=== PATIENT | female | born 1950 | race Caucasian/White ===

== ENCOUNTER 2017-09-07 11:09 | Outpatient (CLI) | payer MEDICARE, MEDICAID ==
--- NOTE | 2017-09-07 16:03 | XRAY Report ---
TWO VIEW CHEST: 09/07/2017 CLINICAL INDICATION: COPD. COMPARISON: 02/13/2013. FINDINGS: Frontal and lateral views of the chest demonstrate a normal cardiac silhouette. The lungs are hyperinflated, compatible with COPD. No focal consolidation, effusion , or pneumothorax is evident. IMPRESSION: HYPERINFLATION, BUT NO EVIDENCE OF ACUTE CARDIOPULMONARY DISEASE. TD: 09/07/2017 16:02 MTDD
== END 2017-09-07 11:10 | disposition home or self-care (01) ==
LOC: DI.S 11:09
PROVIDERS: ATTEND Nurse Practitioner Family
DX: J44.9 Chronic obstructive pulmonary disease, unspecified (principal)
CPT/HCPCS: 71046

== ENCOUNTER 2017-10-06 14:00 | Outpatient (CLI) | payer MEDICARE, MEDICAID | END 2017-10-06 14:01 | disposition home or self-care (01) | LOC: LAB.R 14:00 | PROVIDERS: ATTEND Nurse Practitioner Family | DX: Z79.891 Long term (current) use of opiate analgesic (principal) | CPT/HCPCS: 80307; 81599; G0480; 80354; 80361; 80362; 80365 ==

== ENCOUNTER 2018-04-22 14:14 | Outpatient (CLI) | payer MEDICARE, MEDICAID ==
[2018-04-22 17:39] LABS: BASOPHILS # (AUTO) 0.1 10^3/uL (0.0-0.1); BASOPHILS % (AUTO) 0.5 %; EOSINOPHILS # (AUTO) 0.3 10^3/uL (0.0-0.7); EOSINOPHILS % (AUTO) 3.1 %; HGB - HEMOGLOBIN 14.9 g/dL (12.0-16.0); LYMPHOCYTES # (AUTO) 2.5 10^3/uL (1.5-3.5); LYMPHOCYTES % (AUTO) 27.2 %; MEAN CORPUSCULAR HEMOGLOBIN 29.4 pg (27.0-31.0); MEAN CORPUSCULAR HGB CONC 33.3 g/dL (32.0-36.0); MEAN CORPUSCULAR VOLUME 88.3 fL (81.0-99.0); MONOCYTES # (AUTO) 0.4 10^3/uL (0.0-1.0); MONOCYTES % (AUTO) 4.4 %; NEUTROPHILS # (AUTO) 6.1 10^3/uL (1.5-6.6); NEUTROPHILS % (AUTO) 64.8 %; PLT - PLATELET COUNT 188 10^3/uL (130-450); RED BLOOD COUNT 5.08 10^6/uL (4.20-5.40); RED CELL DISTRIBUTION WIDTH 13.7 % (12.0-15.0); WHITE BLOOD COUNT 9.4 x10^3/uL (4.8-10.8)
[2018-04-22 18:06] LABS: ALBUMIN 3.8 g/dL (3.2-5.5); ALBUMIN/GLOBULIN RATIO 1.4 (1.0-2.2); ALKALINE PHOSPHATASE 76 IU/L (42-121); ALT ALANINE AMINOTRANSFERASE 33 IU/L (10-60); AST ASPARTATE AMINOTRANSFERASE 26 IU/L (10-42); BILIRUBIN,TOTAL 0.7 mg/dL (0.2-1.0); BUN - BLOOD UREA NITROGEN 18 mg/dL (6-20); CALCIUM 9.2 mg/dL (8.5-10.3); CARBON DIOXIDE - CO2 31 mmol/L (21-32); CHLORIDE 99 mmol/L (101-111); CHOL/HDL RATIO 2.8 (<4.4); CHOLESTEROL 138 mg/dL; CREATININE 0.8 mg/dL (0.4-1.0); GFR - MDRD 72 (>89); GLUCOSE 204 mg/dL (70-100); HDL CHOLESTEROL 49 mg/dL; LDL CHOLESTEROL,CALCULATED 68 mg/dL; LDL/HDL RATIO 1.4 (<4.4); SODIUM 137 mmol/L (135-145); TOTAL PROTEIN 6.6 g/dL (6.7-8.2); VLDL CHOLESTEROL 21 mg/dL
[2018-04-22 18:21] LABS: HB2 TOTAL 15.9 g/dL; HEMOGLOBIN A1C 1.2 g/dL; HEMOGLOBIN A1C % 9.1 % (4.6-6.2)
== END 2018-04-22 14:15 | disposition home or self-care (01) ==
LOC: LAB.F 14:14
PROVIDERS: ATTEND Nurse Practitioner Family
DX: I10 Essential (primary) hypertension (principal); E11.9 Type 2 diabetes mellitus without complications; E78.5 Hyperlipidemia, unspecified
CPT/HCPCS: 36415; 80053; 80061; 82043; 83036; 83721; 84443; 85025

== ENCOUNTER 2018-08-23 08:00 | Outpatient (CLI) | payer MEDICARE, MEDICAID ==
[2018-08-23 18:14] LABS: ALBUMIN 3.7 g/dL (3.2-5.5); ALBUMIN/GLOBULIN RATIO 1.2 (1.0-2.2); BILIRUBIN,TOTAL 0.5 mg/dL (0.2-1.0); CALCIUM 8.8 mg/dL (8.5-10.3); CREATININE 0.6 mg/dL (0.4-1.0); TOTAL PROTEIN 6.7 g/dL (6.7-8.2)
[2018-08-23 19:36] LABS: HB2 TOTAL 17.2 g/dL; HEMOGLOBIN A1C 1.33 g/dL; HEMOGLOBIN A1C % 9.2 % (4.6-6.2)
== END 2018-08-23 23:59 | disposition home or self-care (01) ==
LOC: LAB.F 08:00
PROVIDERS: ATTEND Nurse Practitioner Family
DX: E11.9 Type 2 diabetes mellitus without complications (principal)
CPT/HCPCS: 36415; 80053; 82043; 83036

== ENCOUNTER 2018-09-08 08:34 | Outpatient (CLI) | payer MEDICARE, MEDICAID | END 2018-09-08 23:59 | disposition home or self-care (01) | LOC: LAB.R 08:34 | PROVIDERS: ATTEND Nurse Practitioner Family | DX: Z12.11 Encounter for screening for malignant neoplasm of colon (principal) | CPT/HCPCS: 82270; 82274 ==

== ENCOUNTER 2018-09-20 08:00 | Outpatient (CLI) | payer MEDICARE, MEDICAID ==
[2018-09-20 12:24] LABS: BILIRUBIN,URINE NEGATIVE (NEGATIVE); GLUCOSE, URINE (UA) 250 mg/dL (NEGATIVE); KETONES,URINE (UA) TRACE mg/dL (NEGATIVE); LEUKOCYTE ESTERASE, URINE NEGATIVE (NEGATIVE); NITRITE,URINE NEGATIVE (NEGATIVE); OCCULT BLOOD,URINE NEGATIVE (NEGATIVE); PROTEIN,URINE TRACE mg/dL (NEGATIVE); UROBILINOGEN,URINE 0.2 (NORMAL) E.U./dL (NORMAL)
[2018-09-20 12:34] LABS: BACTERIA,URINE None Seen /HPF (None Seen); CLARITY,URINE CLEAR (CLEAR); RBC,URINE None Seen /HPF (0-5); SQUAMOUS EPITHELIAL CELL,UR RARE Squamous (<= Few)
== END 2018-09-20 23:59 | disposition home or self-care (01) ==
LOC: LAB.R 08:00
PROVIDERS: ATTEND Nurse Practitioner Family
DX: R34 Anuria and oliguria (principal); Z79.891 Long term (current) use of opiate analgesic
CPT/HCPCS: 81001; 87086

== ENCOUNTER 2018-11-01 14:21 | Emergency (ER) | payer MEDICARE, MEDICAID ==
[2018-11-01] MEDS ORDERED: IPRATROPIUM/ALBUTEROL 3 ML NEB INH STA (14:37)
--- NOTE | 2018-11-01 14:43 | ED Physician Documentation ---
PD HPI DYSPNEA - Stated complaint Stated Complaint: SOA/CHEST TIGHTNESS - Chief complaint Chief Complaint: Resp - History obtained from History obtained from: Patient - History of Present Illness Timing - onset: Other (67-year-old woman with history of COPD presents with 4 days of cough productive of colored sputum and increased shortness of breath, sometimes with exertion, sometimes at rest. She has had several days worth of constant tightness around the upper abdomen with it and some pedal edema as well. She denies fevers.) Review of Systems Ten Systems: 10 systems reviewed and negative Constitutional: denies: Fever, Chills Throat: denies: Dental pain / toothache, Sore throat Cardiac: reports: Chest pain / pressure, Pedal edema. denies: Palpitations, Calf pain Respiratory: reports: Dyspnea, Cough, Wheezing PD PAST MEDICAL HISTORY - Past Medical History Cardiovascular: None Respiratory: COPD, Shortness of breath Endocrine/Autoimmune: Type 2 diabetes GI: Chronic constipation, Pancreatitis Psych: Depression, Anxiety - Past Surgical History Past Surgical History: Yes /SURGICAL AIDE: Hysterectomy Cardiovascular: Vascular surgery - Present Medications Home Medications: Ambulatory Orders Medication Instructions Recorded Confirmed Albuterol [Proventil Hfa] 1 puffs INH Q4-6H 02/13/13 02/13/13 Aspirin [Aspir 81] 81 mg PO 02/13/13 02/13/13 Hydrocodone/Ibuprofen [Vicoprofen 200 mg PO 02/13/13 02/13/13 200-7.5 mg Tab] Insulin Glargine,Hum.rec.anlog 100 unit SQ 02/13/13 02/13/13 [Lantus] Insulin Lispro [Humalog] 100 unit SQ 02/13/13 02/13/13 Losartan/Hydrochlorothiazide 1 each PO DAILY 02/13/13 02/13/13 [Hyzaar 100-25 Tablet] Montelukast Sodium [Singulair] 10 mg PO HS 02/13/13 02/13/13 Simvastatin [Zocor] 40 mg PO DAILY 02/13/13 02/13/13 Doxycycline Hyclate 100 mg PO BID #14 capsule 11/01/18 Furosemide [Lasix] 20 mg PO DAILY #3 tablet 11/01/18 Ipratropium/Albuterol [Duoneb] 3 ml INH Q6H PRN #1 b 11/01/18 Losartan/Hydrochlorothiazide 1 each PO DAILY #30 tablet 11/01/18 [Losartan-Hctz 100-12.5 mg Tab] Potassium Chloride 10 meq PO DAILY #3 tablet.er 11/01/18 predniSONE [Deltasone] 20 mg PO [id number] #[id number] tab 11/01/18 - Allergies Allergies/Adverse Reactions: Allergies Allergy/AdvReac Type Severity Reaction Status Date / Time lisinopril Allergy Severe Edema Verified 02/13/13 08:52 - Social History Does the pt smoke?: No Smoking Status: Former smoker Does the pt drink ETOH?: No PD ED PE NORMAL - Vitals Vital signs reviewed: Yes - General General: Alert and oriented X 3, No acute distress - HEENT HEENT: PERRL, EOMI - Neck Neck: Supple, no meningeal sign, No bony TTP - Cardiac Cardiac: RRR, No murmur - Respiratory Respiratory: Other (Slightly labored breathing but speaking in full sentences, tight and wheezy throughout.) - Abdomen Abdomen: Soft, Non tender - Back Back: No CVA TTP, No spinal TTP - Derm Derm: Normal color, Warm and dry - Extremities Extremities: Other (2+ bilateral pitting pedal edema, no calf tenderness. Chr onic venous stasis changes.) - Neuro Neuro: Alert and oriented X 3, Normal speech Results - Vitals Vitals: Vital Signs - 24 hr 11/01/18 11/01/18 11/01/18 14:30 14:48 15:00 Temperature 35.8 C L Heart Rate 81 82 Respiratory 22 22 14 Rate Blood Pressure 161/79 H O2 Saturation 98 Oxygen O2 Source Room air - EKG (time done) 1428 Rate: Rate (enter#) (86) Rhythm: NSR [place]: Normal Intervals: Normal MI, LBBB Computer interpretation: Agree with computer - Labs Labs: Laboratory Tests 11/01/18 11/01/18 11/01/18 14:44 14:44 14:44 WBC 8.1 RBC 4.92 Hgb 14.0 Hct 42.9 MCV 87.2 MCH 28.5 MCHC 32.6 RDW 13.6 Plt Count 203 MPV 7.1 L Neut # (Auto) 5.0 Lymph # (Auto) 2.3 Hind[place] # (Auto) 0.5 Eos # (Auto) 0.3 Baso # (Auto) 0.0 Absolute Nucleated RBC 0.01 Nucleated RBC % 0.1 D-Dimer Sodium 139 Potassium 4.2 Chloride 100 L Carbon Dioxide 29 Anion Gap 10.0 BUN 20 Creatinine 0.6 Estimated GFR (MDRD) 100 Glucose 188 H Calcium 9.1 Total Bilirubin 0.7 AST 39 ALT 43 Alkaline Phosphatase 64 Troponin I < 0.04 Total Protein 6.6 L Albumin 3.5 Globulin 3.1 Albumin/Globulin Ratio 1.1 Lipase 20 L 11/01/18 14:44 WBC RBC Hgb Hct MCV MCH MCHC RDW Plt Count MPV Neut # (Auto) Lymph # (Auto) [place] # (Auto) Eos # (Auto) Baso # (Auto) Absolute Nucleated RBC Nucleated RBC % D-Dimer 327.3 H Sodium Potassium Chloride Carbon Dioxide Anion Gap BUN Creatinine Estimated GFR (MDRD) Glucose Calcium Total Bilirubin AST ALT Alkaline Phosphatase Troponin I Total Protein Albumin Globulin Albumin/Globulin Ratio Lipase - Rads (name of study) 2v chest Radiology: EMP read contemporaneously (mild chf) PD MEDICAL DECISION MAKING - ED course ED course: 67-year-old woman with dyspnea that sounds like a COPD exacerbation more than anything else. Note that her d-dimer flags as high but most authorities would consider this value (<500) to be negative. Chest x-ray shows mild CHF. On further history, her physician changed her from losartan/hydrochlorothiazide to metoprolol about a month ago. This may have been suppressing mild chronic CHF and the patient wants to switch back. It is also reasonable to switch away from the beta-ct given the wheezing. She is in no extremis here and understands she needs to follow-up with her physician for further evaluation and treatment and possibly an echocardiogram. Departure - Departure Disposition: 01 Home, Self Care Clinical Impression: Moderate COPD (chronic obstructive pulmonary disease) Congestive heart failure Qualifiers: Heart failure type: unspecified Heart failure chronicity: acute Qualified Code(s): I50.9 - Heart failure, unspecified Condition: Good Record reviewed to determine appropriate education?: Yes Instructions: COPD Dc, Heart Failure Dc Prescriptions: Doxycycline Hyclate 100 mg PO BID #14 capsule Furosemide [Lasix] 20 mg PO DAILY #3 tablet Ipratropium/Albuterol [Duoneb] 3 ml INH Q6H PRN #1 b PRN Reason: Wheezing Losartan/Hydrochlorothiazide [Losartan-Hctz 100-12.5 mg Tab] 1 each PO DAILY #30 tablet Potassium Chloride 10 meq PO DAILY #3 tablet.er predniSONE [Deltasone] 20 mg PO [id number] #21 tab Comments: As discussed your work-up today demonstrates that your shortness of breath is likely a little bit of a combination of COPD exacerbation as well as mild congestive heart failure, Perhaps from recently stopping losartan/hydrochlorothiazide. The diuretics will help and you need to take the potassium supplement while you are on diuretics. Follow-up with your doctor in 2 days for recheck. Return if worse.
[2018-11-01 14:51] LABS: BASOPHILS % (AUTO) 0.6 %; EOSINOPHILS # (AUTO) 0.3 10^3/uL (0.0-0.7); EOSINOPHILS % (AUTO) 3.3 %; LYMPHOCYTES # (AUTO) 2.3 10^3/uL (1.5-3.5); LYMPHOCYTES % (AUTO) 28.9 %; MEAN CORPUSCULAR HEMOGLOBIN 28.5 pg (27.0-31.0); MEAN CORPUSCULAR HGB CONC 32.6 g/dL (32.0-36.0); MEAN CORPUSCULAR VOLUME 87.2 fL (81.0-99.0); MEAN PLATELET VOLUME 7.1 fL (7.9-10.8); MONOCYTES # (AUTO) 0.5 10^3/uL (0.0-1.0); MONOCYTES % (AUTO) 5.6 %; NEUTROPHILS % (AUTO) 61.6 %; PLT - PLATELET COUNT 203 10^3/uL (130-450); RED BLOOD COUNT 4.92 10^6/uL (4.20-5.40); RED CELL DISTRIBUTION WIDTH 13.6 % (12.0-15.0); WHITE BLOOD COUNT 8.1 x10^3/uL (4.8-10.8)
[2018-11-01 15:02] LABS: ALBUMIN 3.5 g/dL (3.2-5.5); ALBUMIN/GLOBULIN RATIO 1.1 (1.0-2.2); BILIRUBIN,TOTAL 0.7 mg/dL (0.2-1.0); CALCIUM 9.1 mg/dL (8.5-10.3); CREATININE 0.6 mg/dL (0.4-1.0); TOTAL PROTEIN 6.6 g/dL (6.7-8.2)
--- NOTE | 2018-11-01 15:56 | XRAY Report ---
Reason: dyspnea Procedure Date: 11/01/2018 Accession Number: [id number] / [id number] Procedure: XR - Chest 2 View X-Ray CPT Code: 95841 FULL RESULT: EXAM: CHEST RADIOGRAPHY EXAM DATE: 11/01/2018 03:40 PM. CLINICAL HISTORY: Dyspnea. COMPARISON: CHEST 2 VIEW 09/07/2017 11:24 AM. TECHNIQUE: 2 views. FINDINGS: Lungs/Pleura: Small right and trace left pleural effusions. Mild interstitial prominence. No consolidation or pneumothorax. Mediastinum: Mild cardiomegaly, increased since previous study, with diffuse vascular fullness. Other: Degenerative changes. IMPRESSION: Mild congestive failure. RADIA
[2018-11-01] MEDS ORDERED: FUROSEMIDE 20 MG TABLET PO STA (16:02)
[2018-11-01] MEDS ORDERED: ISOSORBIDE MONONITRATE ER 30 MG TABLET PO STA (16:02)
[2018-11-01] MEDS ORDERED: DOXYCYCLINE 100 MG TABLET PO STA (16:03)
[2018-11-01] MEDS ORDERED: predniSONE 20 MG TABLET PO STA (16:03)
[2018-11-01 16:20] VITALS: BP 155/75
== END 2018-11-01 16:32 | disposition home or self-care (01) ==
LOC: ED 14:21
DX: J44.9 Chronic obstructive pulmonary disease, unspecified (principal); I50.9 Heart failure, unspecified; I44.7 Left bundle-branch block, unspecified; E11.9 Type 2 diabetes mellitus without complications; Z79.4 Long term (current) use of insulin; Z79.82 Long term (current) use of aspirin; Z87.891 Personal history of nicotine dependence
CPT/HCPCS: 36415; 71046; 80053; 83690; 84484; 85025; 85379; 93005; 94640; 99283; 99284; A9270; J7512

== ENCOUNTER 2018-11-10 13:41 | Outpatient (CLI) | payer MEDICARE, MEDICAID | END 2018-11-10 13:42 | disposition home or self-care (01) | LOC: DI 13:41 | PROVIDERS: ATTEND Nurse Practitioner Family | DX: R07.89 Other chest pain (principal); I51.7 Cardiomegaly; R00.0 Tachycardia, unspecified | CPT/HCPCS: 93306 ==

== ENCOUNTER 2018-11-21 08:00 | Outpatient (CLI) | payer MEDICARE, MEDICAID ==
[2018-11-21 17:09] LABS: MUDS CUTOFF CONCENTRATIONS CUTOFF CONC BELOW:
[2018-11-21 17:33] LABS: COCAINE SCREEN URINE NEGATIVE (NEGATIVE); METHAMPHETAMINES SCREEN, URINE NEGATIVE (NEGATIVE)
[2018-11-21 17:34] LABS: AMPHETAMINE SCREEN,URINE NEGATIVE (NEGATIVE); BENZODIAZEPINES SCREEN, URINE NEGATIVE (NEGATIVE); METHADONE SCREEN, URINE NEGATIVE (NEGATIVE); OPIATE SCREEN, URINE POSITIVE (NEGATIVE); OXYCODONE SCREEN, URINE NEGATIVE (NEGATIVE); PROPOXYPHENE SCREEN, URINE NEGATIVE (NEGATIVE); TRICYCLIC ANTIDEPRESSANT,URINE NEGATIVE (NEGATIVE)
== END 2018-11-21 23:59 | disposition home or self-care (01) ==
LOC: LAB.R 08:00
PROVIDERS: ATTEND Nurse Practitioner Family
DX: G89.4 Chronic pain syndrome (principal)
CPT/HCPCS: 80306

== ENCOUNTER 2018-12-23 09:07 | Outpatient (CLI) | payer MEDICARE, MEDICAID ==
[2018-12-23 17:36] LABS: CHOL/HDL RATIO 2.7 (<4.4); CHOLESTEROL 135 mg/dL; HDL CHOLESTEROL 50 mg/dL; LDL CHOLESTEROL,CALCULATED 74 mg/dL; LDL/HDL RATIO 1.5 (<4.4); VLDL CHOLESTEROL 11 mg/dL
[2018-12-23 18:18] LABS: HB2 TOTAL 14.5 g/dL; HEMOGLOBIN A1C 1.08 g/dL
== END 2018-12-23 09:08 | disposition home or self-care (01) ==
LOC: LAB.F 09:07
PROVIDERS: ATTEND Physician Assistant Medical
DX: E11.9 Type 2 diabetes mellitus without complications (principal); E78.5 Hyperlipidemia, unspecified; M54.2 Cervicalgia; G89.29 Other chronic pain
CPT/HCPCS: 36415; 80061; 83036; 83721

== ENCOUNTER 2019-01-02 13:17 | Outpatient (CLI) | payer MEDICARE, MEDICAID ==
--- NOTE | 2019-01-04 10:20 | XRAY Report ---
Reason: NECK PAIN Procedure Date: 01/02/2019 Accession Number: [id number] / [id number] Procedure: XRS - Cervical Spine Complete CPT Code: FULL RESULT: EXAM: CERVICAL SPINE RADIOGRAPHY EXAM DATE: 01/02/2019 01:56 PM. CLINICAL HISTORY: Neck pain. COMPARISONS: None. TECHNIQUE: 6 views. FINDINGS: Alignment: Slight levoscoliosis of lower cervical spine. No spondylolisthesis. Straightening of the normal cervical lordosis. Bones: No acute fracture or bony lesion. Odontoid is intact. Mild degenerative spurring. Disks: Mild to moderate multilevel disk space narrowing throughout the cervical spine greatest at C4-C5, C5-C6, C6-C7 and C7-T1. Facets: Mild to moderate cervical facet arthropathy. Neural Foramina: Right: Moderate neural foraminal narrowing on the right at C3-C4, mild narrowing at C4-C5, C5-C6, C6-C7 and C7-T1. Left: Mild to moderate neural foraminal narrowing at C3-C4, mild narrowing at C5-C6 and C7-T1. Soft tissues: No prevertebral soft tissue swelling. The visualized lung apices are clear. IMPRESSION: 1. Mild to moderate intervertebral disk degenerative changes of the cervical spine. 2. Cervical facet arthropathy. 3. Bilateral neural foraminal narrowing, as described. RADIA
== END 2019-01-02 13:18 | disposition home or self-care (01) ==
LOC: DI.S 13:17
PROVIDERS: ATTEND Physician Assistant Medical
DX: M50.321 Other cervical disc degeneration at C4-C5 level (principal); M48.02 Spinal stenosis, cervical region; M47.812 Spondylosis without myelopathy or radiculopathy, cervical region
CPT/HCPCS: 72050

== ENCOUNTER 2019-05-08 12:01 | Outpatient (CLI) | payer MEDICARE, MEDICAID ==
[2019-05-08 18:08] LABS: BASOPHILS % (AUTO) 0.4 %; EOSINOPHILS # (AUTO) 0.4 10^3/uL (0.0-0.7); EOSINOPHILS % (AUTO) 4.2 %; HGB - HEMOGLOBIN 15.2 g/dL (12.0-16.0); LYMPHOCYTES # (AUTO) 2.3 10^3/uL (1.5-3.5); LYMPHOCYTES % (AUTO) 23.2 %; MEAN CORPUSCULAR HGB CONC 31.3 g/dL (32.0-36.0); MEAN CORPUSCULAR VOLUME 89.3 fL (81.0-99.0); MEAN PLATELET VOLUME 10.6 fL (7.9-10.8); MONOCYTES # (AUTO) 0.6 10^3/uL (0.0-1.0); MONOCYTES % (AUTO) 6.1 %; NEUTROPHILS # (AUTO) 6.6 10^3/uL (1.5-6.6); NEUTROPHILS % (AUTO) 65.7 %; PLT - PLATELET COUNT 205 10^3/uL (130-450); RED BLOOD COUNT 5.43 10^6/uL (4.20-5.40); RED CELL DISTRIBUTION WIDTH 12.5 % (12.0-15.0); WHITE BLOOD COUNT 10.1 x10^3/uL (4.8-10.8)
[2019-05-08 18:27] LABS: HB2 TOTAL 15.8 g/dL; HEMOGLOBIN A1C 0.96 g/dL; HEMOGLOBIN A1C % 7.7 % (4.6-6.2)
[2019-05-08 18:34] LABS: ALBUMIN/GLOBULIN RATIO 1.2 (1.0-2.2); ALKALINE PHOSPHATASE 56 IU/L (42-121); ALT ALANINE AMINOTRANSFERASE 29 IU/L (10-60); AST ASPARTATE AMINOTRANSFERASE 23 IU/L (10-42); BILIRUBIN,TOTAL 0.6 mg/dL (0.2-1.0); BUN - BLOOD UREA NITROGEN 20 mg/dL (6-20); CALCIUM 9.6 mg/dL (8.5-10.3); CARBON DIOXIDE - CO2 29 mmol/L (21-32); CHLORIDE 103 mmol/L (101-111); CHOL/HDL RATIO 2.7 (<4.4); CHOLESTEROL 129 mg/dL; CREATININE 0.7 mg/dL (0.4-1.0); CREATININE,URINE 140.9 mg/dL; GFR - MDRD 84 (>89); GLUCOSE 124 mg/dL (70-100); HDL CHOLESTEROL 47 mg/dL; LDL CHOLESTEROL,CALCULATED 55 mg/dL; LDL/HDL RATIO 1.2 (<4.4); MICROALBUM/CREATININE RATIO,UR 70.3 ug/mg (<30.0); MICROALBUMIN,URINE 9.9 mg/dL (0-300.0); SODIUM 139 mmol/L (135-145); TOTAL PROTEIN 7.3 g/dL (6.7-8.2); VLDL CHOLESTEROL 27 mg/dL
== END 2019-05-08 12:02 | disposition home or self-care (01) ==
LOC: LAB.S 12:01
PROVIDERS: ATTEND Physician Assistant Medical
DX: I10 Essential (primary) hypertension (principal); E78.5 Hyperlipidemia, unspecified; E11.9 Type 2 diabetes mellitus without complications
CPT/HCPCS: 36415; 80053; 80061; 82043; 82570; 83036; 83721; 85025

== ENCOUNTER 2019-09-13 11:46 | Outpatient (CLI) | payer MEDICARE, MEDICAID ==
[2019-09-13 17:33] LABS: ALBUMIN 3.9 g/dL (3.2-5.5); ALBUMIN/GLOBULIN RATIO 1.3 (1.0-2.2); BILIRUBIN,TOTAL 0.6 mg/dL (0.2-1.0); CREATININE 0.6 mg/dL (0.4-1.0)
[2019-09-13 17:38] LABS: BASOPHILS # (AUTO) 0.1 10^3/uL (0.0-0.1); BASOPHILS % (AUTO) 0.5 %; EOSINOPHILS # (AUTO) 0.4 10^3/uL (0.0-0.7); EOSINOPHILS % (AUTO) 4.5 %; HGB - HEMOGLOBIN 14.5 g/dL (12.0-16.0); LYMPHOCYTES # (AUTO) 2.3 10^3/uL (1.5-3.5); LYMPHOCYTES % (AUTO) 24.6 %; MEAN CORPUSCULAR HEMOGLOBIN 29.2 pg (27.0-31.0); MEAN CORPUSCULAR HGB CONC 31.8 g/dL (32.0-36.0); MEAN CORPUSCULAR VOLUME 91.9 fL (81.0-99.0); MEAN PLATELET VOLUME 10.2 fL (7.9-10.8); MONOCYTES # (AUTO) 0.6 10^3/uL (0.0-1.0); MONOCYTES % (AUTO) 5.8 %; NEUTROPHILS # (AUTO) 6.1 10^3/uL (1.5-6.6); PLT - PLATELET COUNT 216 10^3/uL (130-450); RED BLOOD COUNT 4.96 10^6/uL (4.20-5.40); RED CELL DISTRIBUTION WIDTH 12.6 % (12.0-15.0); WHITE BLOOD COUNT 9.5 x10^3/uL (4.8-10.8)
== END 2019-09-13 11:47 | disposition home or self-care (01) ==
LOC: LAB.S 11:46
PROVIDERS: ATTEND Internal Medicine Cardiovascular Disease
DX: R94.39 Abnormal result of other cardiovascular function study (principal)
CPT/HCPCS: 36415; 80053; 85025

== ENCOUNTER 2020-02-12 08:00 | Outpatient (CLI) | payer MEDICARE, MEDICAID ==
--- NOTE | 2020-02-12 20:00 | XRAY Report ---
PROCEDURE: Chest 2 View X-Ray INDICATIONS: SHORTNESS OF BREATH TECHNIQUE: 2 view(s) of the chest. COMPARISON: None. FINDINGS: Surgical changes and devices: None. Lungs and pleura: No pleural effusions or pneumothorax. Lungs are clear. Mediastinum: Mediastinal contours are normal. Heart size is normal. Bones and chest wall: No suspicious bony abnormalities. Soft tissues appear unremarkable. IMPRESSION: No acute disease. Reviewed by: Tanner Latham MD on 02/12/2020 7:59 PM PDT Approved by: Tanner Latham MD on 02/12/2020 7:59 PM PDT Station ID: [id number]
--- NOTE | 2020-02-13 10:07 | XRAY Report ---
PROCEDURE: Wrist 4 View RT INDICATIONS: PAIN IN RIGHT WRIST TECHNIQUE: 4 views of the wrist were acquired. COMPARISON: None. FINDINGS: Bones: No acute fractures or dislocations. There are degenerative changes of the distal radial carpa l joint. Degenerative changes involving the distal ulna near the distal radial ulnar joint. Mild dege nerative changes of the first carpometacarpal joint. No suspicious bony lesions. Scaphoid view: Scapholunate interval is maintained. No scaphoid fracture visualized. Soft tissues: No suspicious soft tissue calcifications. IMPRESSION: Degenerative changes of the right wrist. No acute fracture or dislocation. Reviewed by: Reno Slater MD on 02/13/2020 10:06 AM PDT Approved by: Reno Slater MD on 02/13/2020 10:06 AM PDT Station ID: [id number]
== END 2020-02-12 23:59 | disposition home or self-care (01) ==
LOC: DI.S 08:00
PROVIDERS: ATTEND Physician Assistant Medical
DX: R06.02 Shortness of breath (principal); M19.031 Primary osteoarthritis, right wrist; I50.1 Left ventricular failure, unspecified; I25.10 Atherosclerotic heart disease of native coronary artery without angina pectoris; J44.9 Chronic obstructive pulmonary disease, unspecified; E11.9 Type 2 diabetes mellitus without complications; E78.5 Hyperlipidemia, unspecified; Z79.899 Other long term (current) drug therapy
CPT/HCPCS: 36415; 71046; 80053; 80061; 82043; 82570; 83036; 83721; 83880; 84443; 85025

== ENCOUNTER 2020-02-22 13:26 | Outpatient (CLI) | payer MEDICARE, MEDICAID | END 2020-02-22 13:27 | disposition home or self-care (01) | LOC: DI 13:26 | PROVIDERS: ATTEND Internal Medicine Cardiovascular Disease | DX: I51.7 Cardiomegaly (principal) | CPT/HCPCS: 93306 ==

== ENCOUNTER 2020-05-06 16:29 | Outpatient (CLI) | payer MEDICARE, MEDICAID | END 2020-05-06 16:30 | disposition home or self-care (01) | LOC: COV 16:29 | PROVIDERS: ATTEND Family Medicine | DX: Z20.828 Contact with and (suspected) exposure to other viral communicable diseases (principal); M79.641 Pain in right hand ==

== ENCOUNTER 2020-06-07 07:00 | Outpatient (CLI) | payer MEDICARE, MEDICAID | END 2020-06-07 23:59 | disposition home or self-care (01) | LOC: COV 07:00 | PROVIDERS: ATTEND Surgery | DX: Z01.812 Encounter for preprocedural laboratory examination (principal); Z80.0 Family history of malignant neoplasm of digestive organs; R11.0 Nausea; E11.9 Type 2 diabetes mellitus without complications; Z20.828 Contact with and (suspected) exposure to other viral communicable diseases ==

== ENCOUNTER 2020-06-13 06:19 | Day surgery (SDC) | payer MEDICARE, MEDICAID ==
[2020-06-13] MEDS ORDERED: LACTATED RINGERS 1,000 ML IV ONE ×2 (07:23→09:54)
--- NOTE | 2020-06-13 07:32 | ANESTHESIA ---
Pre-Anesthesia VS, & Labs - Diagnosis chronic nausea, family history of colon cancer - Procedure EGD and colonoscopy Vital Signs: Temp Pulse Resp BP Pulse Ox 36. C L 81 18 96/64 98 06/13/20 06:53 06/13/20 06:53 06/13/20 06:53 06/13/20 06:53 06/13/20 06:53 Height: 5 ft 5 in Weight (kg): 99.7 kg Body Mass Index: 36.6 BMI Classification: Obese - NPO >8 hours - Is Patient ?: No - Lab Results Current Lab Results: Laboratory Tests 06/13/20 07:19: POC Whole Bld Glucose 181 H Home Medications and Allergies Home Medications: Ambulatory Orders Carvedilol [Coreg] 1 BID 06/13/20 Gabapentin [Neurontin] 1 QID 06/13/20 Losartan [Cozaar] 0.5 DAILY 06/13/20 Prasugrel HCl 1 DAILY 06/13/20 Spironolactone [Aldactone] 1 DAILY 06/13/20 Albuterol [Proventil Hfa] 1 puffs INH Q4-6H 02/13/13 Aspirin [Aspir 81] 81 mg PO 02/13/13 Insulin Glargine,Hum.rec.anlog [Lantus] 100 unit SQ 02/13/13 Montelukast Sodium [Singulair] 10 mg PO HS 02/13/13 Simvastatin [Zocor] 40 mg PO DAILY 02/13/13 Carvedilol [Coreg] 1 BID 06/13/20 Gabapentin [Neurontin] 1 QID 06/13/20 Losartan [Cozaar] 0.5 DAILY 06/13/20 Prasugrel HCl 1 DAILY 06/13/20 Spironolactone [Aldactone] 1 DAILY 06/13/20 Allergies/Adverse Reactions: Allergies Allergy/AdvReac Type Severity Reaction Status Date / Time lisinopril Allergy Severe Edema Verified 02/13/13 08:52 Anes History & Medical History - Anesthetic History Anesthesia Complications: reports: No previous complications - Medical History Cardiovascular: reports: Hypertension, Coronary artery disease (Stents placed 09/2019) Pulmonary: reports: COPD, Shortness of breath, Sleep apnea (snores) Gastrointestinal: reports: Chronic constipation, Pancreatitis Urinary: reports: Incontinence Neuro: reports: Peripheral neuropathy (all extremeties) Musculoskeletal: reports: Osteoarthritis, Fibromyalgia, Chronic back pain Endocrine/Autoimmune: reports: Type 2 diabetes Blood Disorders: reports: None Skin: reports: Eczema, Other Smoking Status: Former smoker (quit 2.5 years ago) Psychosocial: reports: Depression, Anxiety, Cannabis (edible at night) History of Cancer?: No - Surgical History General: Colonoscopy, EGD Eyes Ears Nose Throat (EENT): Cataracts, Tonsil/Adenoidectomy Cardiothoracic: Angioplasty Gynecologic: Dilation and currettage, Hysterectomy Orthopedic: Other Exam General: Alert, Oriented x3, Cooperative, No acute distress Dental: Poor dentition Mouth Openin Fingerbreadth Neck Mobility: Normal Mallampati classification: III Thyromental Distance: 4-6 cm Mental/Cognitive Status: Alert/Oriented X3, Normal for patient Plan Anesthesia Type: MAC Consent for Procedure(s) Verified and Reviewed: Yes Code Status: Attempt Resuscitation ASA classification: 3-Severe systemic disease Is this case an emergency?: No
[2020-06-13] MEDS ORDERED: MIDAZOLAM 2 MG/2 ML VIAL IVP ONE (08:35)
[2020-06-13] MEDS ORDERED: PROPOFOL 200 MG/20 ML VIAL IVP ONE (08:35)
[2020-06-13] MEDS ORDERED: fentaNYL 100 MCG/2 ML VIAL IVP ONE (08:35)
[2020-06-13 10:26] VITALS: BP 131/54
--- NOTE | 2020-06-13 12:31 | ANESTHESIA POST OP EVALUATION ---
Anesthesia Post Eval - Post Anesthesia Eval Vitals: Last Vital Signs Temp 36.0 C L 06/13/20 10:20 Pulse 71 06/13/20 10:20 Resp 14 06/13/20 10:20 BP 131/54 H 06/13/20 10:20 Pulse Ox 98 06/13/20 10:20 CV Function Including HR & BP: positive: Stable Pain Control: positive: Satisfactory Nausea & Vomiting: positive: Negative Mental Status: positive: Baseline Respiratory Status: Airway Patent Hydration Status: Satisfactory Anesthesia Complications: positive: None
== END 2020-06-13 06:20 | disposition home or self-care (01) ==
LOC: SDS 06:19
PROVIDERS: ATTEND Surgery
PROC: 0DBL8ZZ Excision of Transverse Colon, Via Natural or Artificial Opening Endoscopic (ICD-10-PCS; principal; 2020-06-13 07:30)
PROC: 0DB68ZX Excision of Stomach, Via Natural or Artificial Opening Endoscopic, Diagnostic (ICD-10-PCS; 2020-06-13 07:30)
DX: Z12.11 Encounter for screening for malignant neoplasm of colon (principal); K29.50 Unspecified chronic gastritis without bleeding; K44.9 Diaphragmatic hernia without obstruction or gangrene; K29.80 Duodenitis without bleeding; K22.2 Esophageal obstruction; D12.0 Benign neoplasm of cecum; D12.3 Benign neoplasm of transverse colon; D12.5 Benign neoplasm of sigmoid colon; K57.30 Diverticulosis of large intestine without perforation or abscess without bleeding; Z80.0 Family history of malignant neoplasm of digestive organs; E66.01 Morbid (severe) obesity due to excess calories; Z68.35 Body mass index [BMI] 35.0-35.9, adult; I11.0 Hypertensive heart disease with heart failure; I50.9 Heart failure, unspecified; I25.10 Atherosclerotic heart disease of native coronary artery without angina pectoris; J44.9 Chronic obstructive pulmonary disease, unspecified; G47.30 Sleep apnea, unspecified; R32 Unspecified urinary incontinence; E11.42 Type 2 diabetes mellitus with diabetic polyneuropathy; K59.09 Other constipation; M79.7 Fibromyalgia; F32.9 Major depressive disorder, single episode, unspecified; F40.240 Claustrophobia; G89.29 Other chronic pain; M54.9 Dorsalgia, unspecified; Z79.51 Long term (current) use of inhaled steroids; Z79.82 Long term (current) use of aspirin; Z79.4 Long term (current) use of insulin; Z79.899 Other long term (current) drug therapy; Z95.5 Presence of coronary angioplasty implant and graft; Z72.89 Other problems related to lifestyle; Z87.891 Personal history of nicotine dependence; E78.00 Pure hypercholesterolemia, unspecified; Z79.52 Long term (current) use of systemic steroids
CPT/HCPCS: 43239; 45384; 45385; J7120

== ENCOUNTER 2020-06-24 12:57 | Outpatient (CLI) | payer MEDICARE, MEDICAID ==
[2020-06-24 15:45] LABS: ALBUMIN 3.8 g/dL (3.2-5.5); ALBUMIN/GLOBULIN RATIO 1.2 (1.0-2.2); ALKALINE PHOSPHATASE 88 IU/L (42-121); ALT ALANINE AMINOTRANSFERASE 24 IU/L (10-60); AST ASPARTATE AMINOTRANSFERASE 17 IU/L (10-42); BILIRUBIN,TOTAL 0.4 mg/dL (0.2-1.0); BUN - BLOOD UREA NITROGEN 18 mg/dL (6-20); CALCIUM 9.3 mg/dL (8.5-10.3); CARBON DIOXIDE - CO2 30 mmol/L (21-32); CHLORIDE 103 mmol/L (101-111); CHOL/HDL RATIO 2.8 (<4.4); CHOLESTEROL 110 mg/dL; CREATININE 0.7 mg/dL (0.4-1.0); GLUCOSE 94 mg/dL (70-100); HDL CHOLESTEROL 40 mg/dL; LDL CHOLESTEROL,CALCULATED 52 mg/dL; LDL/HDL RATIO 1.3 (<4.4); SODIUM 139 mmol/L (135-145); TOTAL PROTEIN 6.9 g/dL (6.7-8.2); VLDL CHOLESTEROL 18 mg/dL
== END 2020-06-24 12:58 | disposition home or self-care (01) ==
LOC: LAB.S 12:57
PROVIDERS: ATTEND Internal Medicine Cardiovascular Disease
DX: I50.22 Chronic systolic (congestive) heart failure (principal); I25.10 Atherosclerotic heart disease of native coronary artery without angina pectoris; E78.5 Hyperlipidemia, unspecified; I42.9 Cardiomyopathy, unspecified
CPT/HCPCS: 36415; 80053; 80061; 83721; 83880

== ENCOUNTER 2021-01-16 11:19 | Outpatient (CLI) | payer MEDICARE, MEDICAID ==
[2021-01-16 11:46] LABS: BASOPHILS % (AUTO) 0.5 %; EOSINOPHILS # (AUTO) 0.3 10^3/uL (0.0-0.7); EOSINOPHILS % (AUTO) 3.8 %; HCT - HEMATOCRIT 45.1 % (37.0-47.0); HGB - HEMOGLOBIN 14.8 g/dL (12.0-16.0); LYMPHOCYTES # (AUTO) 2.1 10^3/uL (1.5-3.5); LYMPHOCYTES % (AUTO) 25.3 %; MEAN CORPUSCULAR HGB CONC 32.8 g/dL (32.0-36.0); MEAN CORPUSCULAR VOLUME 88.3 fL (81.0-99.0); MEAN PLATELET VOLUME 8.8 fL (7.9-10.8); MONOCYTES # (AUTO) 0.5 10^3/uL (0.0-1.0); MONOCYTES % (AUTO) 5.7 %; NEUTROPHILS # (AUTO) 5.2 10^3/uL (1.5-6.6); NEUTROPHILS % (AUTO) 64.2 %; PLT - PLATELET COUNT 211 10^3/uL (130-450); RED BLOOD COUNT 5.11 10^6/uL (4.20-5.40); RED CELL DISTRIBUTION WIDTH 12.9 % (12.0-15.0); WHITE BLOOD COUNT 8.1 x10^3/uL (4.8-10.8)
[2021-01-16 12:07] LABS: CREATININE,URINE 136.8 mg/dL; MICROALBUM/CREATININE RATIO,UR 30.7 ug/mg (<30.0); MICROALBUMIN,URINE 4.2 mg/dL (0-300.0)
[2021-01-16 12:10] LABS: ALBUMIN 3.9 g/dL (3.2-5.5); ALBUMIN/GLOBULIN RATIO 1.2 (1.0-2.2); ALKALINE PHOSPHATASE 79 IU/L (42-121); ALT ALANINE AMINOTRANSFERASE 26 IU/L (10-60); AST ASPARTATE AMINOTRANSFERASE 17 IU/L (10-42); BILIRUBIN,TOTAL 0.3 mg/dL (0.2-1.0); BUN - BLOOD UREA NITROGEN 15 mg/dL (6-20); CALCIUM 9.4 mg/dL (8.5-10.3); CARBON DIOXIDE - CO2 29 mmol/L (21-32); CHLORIDE 102 mmol/L (101-111); CHOL/HDL RATIO 3.8 (<4.4); CHOLESTEROL 200 mg/dL; CREATININE 0.7 mg/dL (0.4-1.0); GFR - MDRD 83 (>89); GLUCOSE 99 mg/dL (70-100); HDL CHOLESTEROL 53 mg/dL; LDL CHOLESTEROL,CALCULATED 131 mg/dL; LDL/HDL RATIO 2.5 (<4.4); POTASSIUM 4.2 mmol/L (3.5-5.0); SODIUM 141 mmol/L (135-145); TOTAL PROTEIN 7.2 g/dL (6.7-8.2); TRIGLYCERIDES 78 mg/dL; VLDL CHOLESTEROL 16 mg/dL
[2021-01-16 12:17] LABS: THYROID STIMULATING HORMONE 2.18 uIU/mL (0.34-5.60)
[2021-01-16 12:26] LABS: ESTIMATED AVERAGE GLUCOSE 203 mg/dL (70-100); HEMOGLOBIN A1c% 8.7 % (4.27-6.07)
== END 2021-01-16 11:20 | disposition home or self-care (01) ==
LOC: LAB 11:19
PROVIDERS: ATTEND Physician Assistant
DX: I11.0 Hypertensive heart disease with heart failure (principal); I50.1 Left ventricular failure, unspecified; R06.02 Shortness of breath; I25.10 Atherosclerotic heart disease of native coronary artery without angina pectoris; Z79.899 Other long term (current) drug therapy; J44.9 Chronic obstructive pulmonary disease, unspecified; E11.9 Type 2 diabetes mellitus without complications; Z79.4 Long term (current) use of insulin; E66.01 Morbid (severe) obesity due to excess calories; E78.5 Hyperlipidemia, unspecified
CPT/HCPCS: 36415; 80053; 80061; 82043; 82570; 83036; 83721; 83880; 84443; 85025

== ENCOUNTER 2021-05-09 11:11 | Outpatient (CLI) | payer MEDICARE, MEDICAID ==
--- NOTE | 2021-05-09 12:03 | XRAY Report ---
PROCEDURE: Cervical Spine 2 View INDICATIONS: CERVICALGIA TECHNIQUE: 4 view(s) of the cervical spine were acquired. COMPARISON: 01/02/2019. FINDINGS: Bones: No fractures or dislocations to the C7-T1 level. Degenerative endplate changes and bilateral facet hypertrophic changes are noted throughout cervical spine. The lateral masses of C1 appear intac t on the odontoid view. No suspicious bony lesions. Soft tissues: No prevertebral soft tissue swelling. IMPRESSION: Mild to moderate degenerative disc disease throughout cervical spine. No fracture or dis location. No prevertebral soft tissue abnormality. Reviewed by: Riaz Lara MD on 05/09/2021 12:02 PM PDT Approved by: Riaz Lara MD on 05/09/2021 12:02 PM PDT Station ID: [id number]
[2021-05-09 19:52] LABS: ESTIMATED AVERAGE GLUCOSE 189 mg/dL (70-100); HEMOGLOBIN A1c% 8.2 % (4.27-6.07)
== END 2021-05-09 11:12 | disposition home or self-care (01) ==
LOC: DI.S 11:11
PROVIDERS: ATTEND Internal Medicine
DX: M50.30 Other cervical disc degeneration, unspecified cervical region (principal); E11.9 Type 2 diabetes mellitus without complications
CPT/HCPCS: 36415; 83036

== ENCOUNTER 2021-09-05 09:55 | Outpatient (CLI) | payer MEDICARE, MEDICAID ==
[2021-09-05 10:15] LABS: BASOPHILS % (AUTO) 0.4 %; EOSINOPHILS # (AUTO) 0.3 10^3/uL (0.0-0.7); EOSINOPHILS % (AUTO) 3.4 %; HGB - HEMOGLOBIN 15.1 g/dL (12.0-16.0); LYMPHOCYTES # (AUTO) 2.4 10^3/uL (1.5-3.5); LYMPHOCYTES % (AUTO) 26.5 %; MEAN CORPUSCULAR HEMOGLOBIN 29.8 pg (27.0-31.0); MEAN CORPUSCULAR HGB CONC 32.8 g/dL (32.0-36.0); MEAN CORPUSCULAR VOLUME 90.7 fL (81.0-99.0); MEAN PLATELET VOLUME 8.8 fL (7.9-10.8); MONOCYTES # (AUTO) 0.6 10^3/uL (0.0-1.0); MONOCYTES % (AUTO) 6.8 %; NEUTROPHILS # (AUTO) 5.7 10^3/uL (1.5-6.6); NEUTROPHILS % (AUTO) 62.4 %; PLT - PLATELET COUNT 185 10^3/uL (130-450); RED BLOOD COUNT 5.07 10^6/uL (4.20-5.40); RED CELL DISTRIBUTION WIDTH 12.6 % (12.0-15.0); WHITE BLOOD COUNT 9.2 x10^3/uL (4.8-10.8)
[2021-09-05 10:27] LABS: ALBUMIN/GLOBULIN RATIO 1.3 (1.0-2.2); BILIRUBIN,TOTAL 0.7 mg/dL (0.2-1.0); CALCIUM 9.5 mg/dL (8.5-10.3); CREATININE 0.7 mg/dL (0.4-1.0); POTASSIUM 4.4 mmol/L (3.5-5.0); TOTAL PROTEIN 7.2 g/dL (6.7-8.2)
[2021-09-05 11:30] LABS: ESTIMATED AVERAGE GLUCOSE 186 mg/dL (70-100); HEMOGLOBIN A1c% 8.1 % (4.27-6.07)
== END 2021-09-05 09:56 | disposition home or self-care (01) ==
LOC: LAB 09:55
PROVIDERS: ATTEND Internal Medicine
DX: I10 Essential (primary) hypertension (principal); E11.9 Type 2 diabetes mellitus without complications
CPT/HCPCS: 36415; 80053; 83036; 85025

== ENCOUNTER 2021-11-25 14:33 | Outpatient (CLI) | payer MEDICARE, MEDICAID ==
[2021-11-25] MEDS ORDERED: ALBUTEROL 1 PUFF INH STA (17:12)
== END 2021-11-25 14:34 | disposition home or self-care (01) ==
LOC: RT 14:33
PROVIDERS: ATTEND Internal Medicine
DX: J44.9 Chronic obstructive pulmonary disease, unspecified (principal)
CPT/HCPCS: 94060; 94727; 94729

== ENCOUNTER 2022-10-15 13:18 | Emergency (ER) | payer MEDICARE, MEDICAID ==
[2022-10-15 14:00] LABS: BASOPHILS % (AUTO) 0.4 %; EOSINOPHILS # (AUTO) 0.2 10^3/uL (0.0-0.7); EOSINOPHILS % (AUTO) 2.2 %; HCT - HEMATOCRIT 48.2 % (37.0-47.0); HGB - HEMOGLOBIN 15.5 g/dL (12.0-16.0); LYMPHOCYTES # (AUTO) 2.3 10^3/uL (1.5-3.5); LYMPHOCYTES % (AUTO) 21.4 %; MEAN CORPUSCULAR HEMOGLOBIN 29.1 pg (27.0-31.0); MEAN CORPUSCULAR HGB CONC 32.2 g/dL (32.0-36.0); MEAN CORPUSCULAR VOLUME 90.4 fL (81.0-99.0); MEAN PLATELET VOLUME 9.4 fL (7.9-10.8); MONOCYTES # (AUTO) 0.5 10^3/uL (0.0-1.0); MONOCYTES % (AUTO) 4.4 %; NEUTROPHILS # (AUTO) 7.6 10^3/uL (1.5-6.6); NEUTROPHILS % (AUTO) 71.2 %; PLT - PLATELET COUNT 215 10^3/uL (130-450); RED BLOOD COUNT 5.33 10^6/uL (4.20-5.40); RED CELL DISTRIBUTION WIDTH 12.4 % (12.0-15.0); WHITE BLOOD COUNT 10.7 x10^3/uL (4.8-10.8)
[2022-10-15 14:11] LABS: ALBUMIN 3.8 g/dL (3.2-5.5); ALBUMIN/GLOBULIN RATIO 1.4 (1.0-2.2); BILIRUBIN,TOTAL 0.4 mg/dL (0.2-1.0); CALCIUM 9.4 mg/dL (8.5-10.3); CREATININE 0.7 mg/dL (0.4-1.0); POTASSIUM 4.6 mmol/L (3.5-5.0); TOTAL PROTEIN 6.6 g/dL (6.7-8.2)
[2022-10-15] MEDS ORDERED: SODIUM CHLORIDE 0.9% 1,000 ML IV STA (16:13)
[2022-10-15] MEDS ORDERED: MORPHINE 2 MG/ML CARPUJECT IVP STA (16:13)
--- NOTE | 2022-10-15 16:19 | ED Physician Documentation ---
PD HPI ABD PAIN - Stated complaint Stated Complaint: ABD PX - Chief complaint Chief Complaint: Abd Pain - History obtained from History obtained from: Patient - History of Present Illness Timing - onset: How many days ago (3-4) Timing - details: Gradual onset Pain level max: 8 Pain level now: 6 Quality: Aching, Pain Location: RUQ, RLQ, Other (R flank) Radiation: Right flank Improved by: Laying still Worsened by: Moving, Palpation Associated symptoms: Nausea, Vomiting, Constipation. No: Fever, Hematemesis, Diarrhea, Melena, Hematochezia, Dysuria, Hematuria, Chest pain, Dizzy, Near syncope / syncope, Loss of appetite, Weight loss, Vaginal bleeding Similar symptoms before: Diagnosis (gastroparesis) Review of Systems Constitutional: denies: Fever, Chills GI: denies: Hematemesis, Bloody / black stool : denies: Dysuria, Frequency, Hesitancy Skin: denies: Rash Musculoskeletal: denies: Neck pain Neurologic: denies: Headache PD PAST MEDICAL HISTORY - Past Medical History Cardiovascular: Hypertension, Coronary artery disease Respiratory: COPD, Shortness of breath, Sleep apnea Neuro: Peripheral neuropathy Endocrine/Autoimmune: Type 2 diabetes GI: Chronic constipation, Pancreatitis : Incontinence HEENT: Chronic vision loss, Other Psych: Depression, Anxiety Musculoskeletal: Osteoarthritis, Fibromyalgia, Chronic back pain Derm: Eczema, Other - Past Surgical History Past Surgical History: Yes General: Colonoscopy, EGD Ortho: Other /CASH PROCESSOR: Dilation and currettage, Hysterectomy Cardiovascular: Angioplasty HEENT: Cataracts, Tonsil/Adenoidectomy - Present Medications Home Medications: Ambulatory Orders Medication Instructions Recorded Confirmed Albuterol [Proventil Hfa] 1 puffs INH Q4-6H 02/13/13 02/13/13 Aspirin [Aspir 81] 81 mg PO 02/13/13 02/13/13 Insulin Glargine,Hum.rec.anlog 100 unit SQ 02/13/13 02/13/13 [Lantus] Montelukast Sodium [Singulair] 10 mg PO HS 02/13/13 02/13/13 Simvastatin [Zocor] 40 mg PO DAILY 02/13/13 02/13/13 Ipratropium/Albuterol [Duoneb] 3 ml INH Q6H PRN #1 b 11/01/18 Potassium Chloride 10 meq PO DAILY #3 tablet.er 11/01/18 Carvedilol [Coreg] 1 BID 06/13/20 FLUoxetine [PROzac] 1 DAILY 06/13/20 Gabapentin [Neurontin] 1 QID 06/13/20 Losartan [Cozaar] 0.5 DAILY 06/13/20 Prasugrel HCl 1 DAILY 06/13/20 Spironolactone [Aldactone] 1 DAILY 06/13/20 oxyCODONE [Roxicodone] 5 - 10 mg PO Q6H PRN #14 tablet 10/15/22 MDD 6 - Allergies Allergies/Adverse Reactions: Allergies Allergy/AdvReac Type Severity Reaction Status Date / Time lisinopril Allergy Severe Edema Verified 10/15/22 13:22 - Social History Does the pt smoke?: No Smoking Status: Never smoker Does the pt drink ETOH?: No Does the pt have substance abuse?: No - Immunizations Immunizations are current?: Yes PD ED PE NORMAL - Vitals Vital signs reviewed: Yes - General General: Alert and oriented X 3, No acute distress - HEENT HEENT: PERRL - Neck Neck: Supple, no meningeal sign - Cardiac Cardiac: RRR - Respiratory Respiratory: No respiratory distress, Clear bilaterally - Abdomen Abdomen: Soft, Non distended, Other (mild TTP RUQ, RLQ and R CVAT. o/w normal exam) - Back Back: No spinal TTP - Derm Derm: Warm and dry - Extremities Extremities: No edema, No calf tenderness / cord - Neuro Neuro: Alert and oriented X 3 - Psych Psych: Normal mood, Normal affect Results - Vitals Vitals: Vital Signs - 24 hr 10/15/22 10/15/22 10/15/22 13:22 15:48 17:09 Temperature 36.5 C Heart Rate 75 79 82 Respiratory 20 21 18 Rate Blood Pressure 121/65 136/60 H 118/62 O2 Saturation 93 100 97 10/15/22 19:10 Temperature Heart Rate 76 Respiratory 14 Rate Blood Pressure O2 Saturation 98 Oxygen O2 Source Room air - Labs Labs: Laboratory Tests 10/15/22 10/15/22 10/15/22 13:54 13:54 14:00 WBC 10.7 RBC 5.33 Hgb 15.5 Hct 48.2 H MCV 90.4 MCH 29.1 MCHC 32.2 RDW 12.4 Plt Count 215 MPV 9.4 Neut # (Auto) 7.6 H Lymph # (Auto) 2.3 Delta # (Auto) 0.5 Eos # (Auto) 0.2 Baso # (Auto) 0.0 Absolute Nucleated RBC 0.00 Nucleated RBC % 0.0 Sodium 135 Potassium 4.6 Chloride 100 L Carbon Dioxide 28 Anion Gap 7.0 BUN 16 Creatinine 0.7 Estimated GFR (MDRD) 83 L Glucose 244 H Calcium 9.4 Total Bilirubin 0.4 AST 15 ALT 23 Alkaline Phosphatase 79 Total Protein 6.6 L Albumin 3.8 Globulin 2.8 Albumin/Globulin Ratio 1.4 Lipase 32 Urine Color YELLOW Urine Clarity CLEAR Urine pH 6.5 Ur Specific [place] 1.010 Urine Protein NEGATIVE Urine Glucose (UA) 500 H Urine Ketones NEGATIVE Urine Occult Blood NEGATIVE Urine Nitrite NEGATIVE Urine Bilirubin NEGATIVE Urine Urobilinogen 0.2 (NORMAL) Ur Leukocyte Esterase NEGATIVE Ur Microscopic Review NOT INDICATED Urine Culture Comments NOT INDICATED - Rads (name of study) CT abd pel Relevant Findings:: Final report received, See rad report PD Medical Decision Making - ED course Complexity details: reviewed results, re-evaluated patient, considered differential, d/w patient, d/w family ED course: 71-year-old female with abdominal pain/right flank pain. Unclear etiology. No significant findings on CT scan, CBC, chemistry or urinalysis. Blood sugar is elevated at 244 consistent with her diabetes. Pain well controlled in the emergency department. Feels better after IV fluids as well. We will place her on pain medication for home and have her follow-up with her doctor for further care. Patient counseled regarding signs and symptoms for which I believe and urgent re-evaluation would be necessary. Patient with good understanding of and agreement to plan and is comfortable going home at this time This document was made in part using voice recognition software. While efforts are made to proofread this document, sound alike and grammatical errors may occur. Departure - Departure Disposition: 01 Home, Self Care Clinical Impression: Flank pain Abdominal pain Qualifiers: Abdominal location: unspecified location Qualified Code(s): R10.9 - Unspecified abdominal pain Condition: Good Instructions: ED Abdominal Pain Female Non-Specific Abdominal Pain Follow-Up: David Alcantar MD [Primary Care Provider] - Within 1 week Prescriptions: oxyCODONE [Roxicodone] 5 - 10 mg PO Q6H PRN #14 tablet MDD 6 PRN Reason: pain Comments: Your laboratory testing and CT scan did not show any acute abnormalities today. Please follow-up with your doctor for further care. The cause of your pain is unclear today. Your pain medication was sent to [facility] in [place]. I am prescribing a short course of narcotic pain medication for you. These are potentially dangerous and addictive medications that should be used carefully. These medications may constipate you. Take an [id number]-[id number] stool softener (docusate) twice daily with plenty of water while taking these medications. If you go 24 hours without a bowel movement, take [id number] miralax, per package instructions. Do not drink or drive while taking these medications. If you received narcotic or sedating medications while in the emergency department, do not drive for 24 hours. Store this medication in a safe, secure place and out of reach of children. It is a violation of federal law to give or sell this medication to another person or to use in a manner other than prescribed. The ED will not refill narcotic prescriptions, including prescriptions lost or stolen. To dispose of unwanted medications: 1. [facility] [address] in [place] has a medication drop box. They accept prescription medications (in pill form) Wednesday through Wednesday 9:00 a.m. to 5:00 p.m. 2. The [facility] [employer] accepts prescription medications (in pill form only) for disposal year round. Call for more information. 3. Contact the [facility] for the next [facility] sponsored prescription drug collection event. , [phone], or [phone]; Discharge Date/Time: 10/15/22 19:31
[2022-10-15] MEDS ORDERED: iohexoL-300 100 ML VIAL ONE (16:33)
[2022-10-15] MEDS ORDERED: iohexoL-300 100 ML VIAL IVP ONE (17:03)
[2022-10-15 17:11] VITALS: BP 118/62
--- NOTE | 2022-10-15 17:17 | CT Report ---
PROCEDURE: ABDOMEN/PELVIS W INDICATIONS: R sided abd pain x several days CONTRAST: 100mL Omni 300 TECHNIQUE: After the administration of intravenous contrast, 5 mm thick sections acquired from the diaphragms to the symphysis. 5 mm thick coronal and sagittal reformats were acquired. For radiation dose reducti on, the following was used: automated exposure control, adjustment of mA and/or kV according to jonnathan ent size. COMPARISON: CT abdomen/pelvis 04/07/2014 FINDINGS: Image quality: Excellent. Lung bases and heart: Unremarkable. Liver: Unremarkable. Gallbladder and biliary tree: Unremarkable. No biliary dilation. Spleen: Small hypoattenuating lesion in the posterior spleen is too small to characterize, but is lik shruthi benign. Pancreas: Unremarkable. Adrenals: Mild nodular thickening of the adrenals is presumably changed compared to the CT from 2013, and is considered benign. Kidneys and ureters: Unremarkable. Bowel and peritoneum: No bowel distension. No pathologic free fluid. Normal appendix. Lymph nodes: No central or retroperitoneal adenopathy. Vessels: Moderate aortic atherosclerotic calcifications. PELVIS Reproductive organs: Status post hysterectomy. Bladder: Unremarkable. Lymph nodes: Unremarkable. Bones: No aggressive osseous abnormality. Degenerative changes are seen in the spine. Other: Subcutaneous edema is seen at the lower abdominal wall bilaterally. IMPRESSION: 1.No acute abnormality is seen in the abdomen or pelvis. Normal appendix. 2.Nonspecific subcutaneous edema abutting the skin surface at the lower abdominal wall, possibly rela marta to medication administration versus cellulitis or other process. Recommend correlation with physi sanjay exam findings. Reviewed by: Yong Rodriguez MD on 10/15/2022 5:16 PM PDT Approved by: Yong Rodriguez MD on 10/15/2022 5:16 PM PDT Station ID: [id number]
[2022-10-15 17:19] LABS: BILIRUBIN,URINE NEGATIVE (NEGATIVE); GLUCOSE, URINE (UA) 500 mg/dL (NEGATIVE); KETONES,URINE (UA) NEGATIVE (NEGATIVE); LEUKOCYTE ESTERASE, URINE NEGATIVE (NEGATIVE); NITRITE,URINE NEGATIVE (NEGATIVE); OCCULT BLOOD,URINE NEGATIVE (NEGATIVE); PH,URINE 6.5 PH (5.0-7.5); PROTEIN,URINE NEGATIVE (NEGATIVE); UROBILINOGEN,URINE 0.2 (NORMAL) E.U./dL (NORMAL)
[2022-10-15 17:24] LABS: CLARITY,URINE CLEAR (CLEAR)
[2022-10-15] MEDS ORDERED: FAMOTIDINE 20 MG TABLET PO STA (18:17)
[2022-10-15] MEDS ORDERED: SUCRALFATE 1 GM/10 ML UDC PO STA (18:17)
[2022-10-15] MEDS ORDERED: MAG HYDROX/AL HYDROX/SIMETH 30 ML UDC PO STA (18:17)
[2022-10-15] MEDS ORDERED: oxyCODONE 5 MG TABLET PO STA (18:17)
== END 2022-10-15 19:31 | disposition home or self-care (01) ==
LOC: ED 13:18
DX: R10.9 Unspecified abdominal pain (principal); I10 Essential (primary) hypertension
CPT/HCPCS: 36415; 74177; 80053; 81003; 83690; 85025; 96374; 99284; A9270; Q9967; 81001; 87086

== ENCOUNTER 2023-09-30 18:02 | Emergency (ER) | payer MEDICARE, MEDICAID ==
--- NOTE | 2023-09-30 18:24 | ED Physician Documentation ---
PD HPI CHEST PAIN - Stated complaint Stated Complaint: CHEST PX - Chief complaint Chief Complaint: Cardiac - History obtained from History obtained from: Patient - Additional information Additional information: 72-year-old woman with history of COPD, cardiomyopathy with last EF available to me of 35% on echo about 4 years ago, coronary disease with 4 stents in her heart presents for the evaluation of chest pain. She has been having episodic brief chest pain for the last couple weeks, today developed substernal chest pain radiating to the both arms and to the right scapula starting about 10 minutes prior to arrival while shopping at the grocery store. She has chronic pedal edema not worse than normal. She is more short of breath than normal. She has a history of tobacco abuse and still smokes a couple cigarettes a week. Subsequently she tells me for the last couple of weeks she is having crescendo chest pains that are similar. This is the one that has lasted the longest so far. PD PAST MEDICAL HISTORY - Past Medical History Past Medical History: Yes Cardiovascular: Hypertension, Coronary artery disease Respiratory: COPD, Shortness of breath, Sleep apnea Neuro: Peripheral neuropathy Endocrine/Autoimmune: Type 2 diabetes GI: Chronic constipation, Pancreatitis : Incontinence HEENT: Chronic vision loss, Other Psych: Depression, Anxiety Musculoskeletal: Osteoarthritis, Fibromyalgia, Chronic back pain Derm: Eczema, Other - Past Surgical History Past Surgical History: Yes General: Colonoscopy, EGD Ortho: Other /ST[employer] TUBE: Dilation and currettage, Hysterectomy Cardiovascular: Angioplasty HEENT: Cataracts, Tonsil/Adenoidectomy - Present Medications Home Medications: Ambulatory Orders Medication Instructions Recorded Confirmed Albuterol [Proventil Hfa] 1 puffs INH Q4-6H 02/13/13 09/30/23 Aspirin [Aspir 81] 81 mg PO DAILY 02/13/13 09/30/23 Insulin Glargine,Hum.rec.anlog 100 unit SQ HS 02/13/13 09/30/23 [Lantus] Montelukast Sodium [Singulair] 10 mg PO HS 02/13/13 09/30/23 Simvastatin [Zocor] 40 mg PO DAILY 02/13/13 02/13/13 Ipratropium/Albuterol [Duoneb] 3 ml INH Q6H PRN #1 b 11/01/18 09/30/23 Potassium Chloride 10 meq PO DAILY #3 tablet.er 11/01/18 FLUoxetine [PROzac] 1 DAILY 06/13/20 Gabapentin [Neurontin] 600 mg PO QID 06/13/20 09/30/23 Losartan [Cozaar] 50 mg PO DAILY 06/13/20 09/30/23 Prasugrel HCl 10 mg PO DAILY 06/13/20 09/30/23 Spironolactone [Aldactone] 25 mg PO DAILY 06/13/20 09/30/23 carvediloL [Coreg] 12.5 mg PO BID 06/13/20 09/30/23 Albuterol Sulf [Ventolin Hfa 1 - 2 puffs INH Q4HR PRN 09/30/23 09/30/23 Inhaler] HYDROcod/ACETAM 5/325 [[place] 5/325] 1 tab PO PRN PRN 09/30/23 09/30/23 Insulin Lispro [Humalog Kwikpen 35 unit SUBQ TID 09/30/23 09/30/23 U-100] Ipratropium/Albuterol [Combivent 1 inh INH QID 09/30/23 09/30/23 Respimat] Omeprazole 20 mg PO DAILY 09/30/23 09/30/23 - Allergies Allergies/Adverse Reactions: Allergies Allergy/AdvReac Type Severity Reaction Status Date / Time lisinopril Allergy Severe Edema Verified 09/30/23 18:05 - Social History Does the pt smoke?: Yes Smoking Status: Current some day smoker Does the pt drink ETOH?: No Does the pt have substance abuse?: No - Immunizations Immunizations are current?: Yes PD ED PE NORMAL - Vitals Vital signs reviewed: Yes - General General: Alert and oriented X 3, No acute distress - HEENT HEENT: PERRL, EOMI - Neck Neck: Supple, no meningeal sign, No bony TTP - Cardiac Cardiac: Other (Tachycardic but regular with diminished heart sounds and no clear murmur.) - Respiratory Respiratory: Other (Mildly labored breathing, expiratory wheezes.) - Abdomen Abdomen: Non tender - Extremities Extremities: Other (1+ pitting pedal edema, symmetric) - Neuro Neuro: Alert and oriented X 3 Eye Opening: Spontaneous Motor: Obeys Commands Verbal: Oriented GCS Score: 15 - Psych Psych: Normal mood, Normal affect Results - Vitals Vitals: Vital Signs - 24 hr 09/30/23 09/30/23 09/30/23 18:05 18:07 19:37 Temperature 36.5 C Heart Rate 114 H 127 H 108 H Respiratory 16 19 18 Rate Blood Pressure 158/73 H 189/101 H 138/55 H O2 Saturation 96 98 98 09/30/23 09/30/23 09/30/23 20:00 21:00 22:00 Temperature Heart Rate 107 H 113 H 115 H Respiratory 18 18 19 Rate Blood Pressure 131/65 H 165/65 H 125/72 O2 Saturation 96 95 95 09/30/23 23:00 Temperature Heart Rate 98 Respiratory 19 Rate Blood Pressure O2 Saturation 95 Oxygen O2 Source Room air - EKG (time done) 1817 EKG releavant findings:: EKG personally interpreted by author of this note. Relevant findings are: Rate: Rate (enter#) (116) Rhythm: Sinus tachycardia Intervals: LBBB Ischemia: Other (DONOVAN due to strain/IVCD) Compare to prior EKG: Changed from prior EKG (Compared with November 01, 2018, the left bundle branch block is old but with increased strain morphology.) Computer interpretation: Agree with computer - Labs Labs: Laboratory Tests 09/30/23 09/30/23 09/30/23 18:30 18:30 20:19 WBC 11.2 H RBC 5.21 Hgb 15.0 Hct 47.8 H MCV 91.7 MCH 28.8 MCHC 31.4 L RDW 12.6 Plt Count 227 MPV 9.0 Neut # (Auto) 7.2 H Lymph # (Auto) 2.8 [place] # (Auto) 0.8 Eos # (Auto) 0.4 Baso # (Auto) 0.0 Absolute Nucleated RBC 0.00 Nucleated RBC % 0.0 Sodium 136 Potassium 4.3 Chloride 102 Carbon Dioxide 29 Anion Gap 5.0 L BUN 18 Creatinine 0.7 Estimated GFR (MDRD) 83 L Glucose 256 H Calcium 9.7 Magnesium 1.7 Total Bilirubin 0.4 AST 12 ALT 16 Alkaline Phosphatase 66 Troponin I High Sens 37.6 H* 243.0 H* Total Protein 6.5 Albumin 3.9 Globulin 2.6 Albumin/Globulin Ratio 1.5 - Rads (name of study) Single view chest x-ray is unremarkable Relevant Findings:: Final report received, EMP independent interpretation of test CT pulmonary angiogram without large PE. Bronchial wall thickening may indicate bronchitis. Enlarged right thyroid lobe Relevant Findings:: Final report received, EMP independent interpretation of test PD Medical Decision Making - ED course ED course: 72-year-old woman with crescendo pain that is concerning for angina. Not clearly ischemic EKG. She does have a positive troponin here but only mildly positive but it was fairly quick after the onset of symptoms. She was administered aspirin and nitroglycerin after which her pain went away. Chest x- ray was normal. She was somewhat tachycardic and having a lot of wheezing. She was administered a DuoNeb and subsequently some metoprolol as well. She is already on carvedilol. I thought the risk-benefit of adding beta-blockers was in her favor given the concern for unstable angina. She is having crescendo type symptoms and I think it is reasonable for her to be transferred for cardiology evaluation with potential for early interventional strategy. [facility] was called for potential transfer at 7:55 PM. HEART score 8 I was notified shortly thereafter the [facility] was full, we called [facility], and were told the whole [facility] system was full. Subsequently the health community engagement leader called [facility] and they may have a bed. Initial troponin 37.6. She does have a history of cardiomyopathy and COPD so it is not too surprising that she has an elevated troponin. That said a second 1 was obtained after 2 hours and had risen significantly to 243. Otherwise she was modestly hyperglycemic on CMP and her CBC had a mild nonspecific leukocytosis. At 9:20 PM she was graciously accepted to [facility] by Dr. Jason Godoy, hospitalist there who does request that we start a heparin drip. - Critical Care Time(min): 40 Time Includes: Direct patient care, Review records, Reassess patient, Document care, Coordinate care, Medical consult, Family consult for tx dec Data interpretation: Labs, Pulse ox Procedures included in critical care time: Peripheral IV Procedures excluded from critical care time: EKG Departure - Departure Disposition: 02 Transfer Acute Care Hosp Clinical Impression: Unstable angina, Abnormal imaging of thyroid Condition: Serious Forms: PCP List Discharge Date/Time: 09/30/23 23:06
[2023-09-30] MEDS ORDERED: iohexoL-300 100 ML VIAL ONE (18:26)
[2023-09-30 18:34] LABS: BASOPHILS % (AUTO) 0.4 %; EOSINOPHILS # (AUTO) 0.4 10^3/uL (0.0-0.7); EOSINOPHILS % (AUTO) 3.6 %; HCT - HEMATOCRIT 47.8 % (37.0-47.0); LYMPHOCYTES # (AUTO) 2.8 10^3/uL (1.5-3.5); LYMPHOCYTES % (AUTO) 24.6 %; MEAN CORPUSCULAR HEMOGLOBIN 28.8 pg (27.0-31.0); MEAN CORPUSCULAR HGB CONC 31.4 g/dL (32.0-36.0); MEAN CORPUSCULAR VOLUME 91.7 fL (81.0-99.0); MONOCYTES # (AUTO) 0.8 10^3/uL (0.0-1.0); MONOCYTES % (AUTO) 6.9 %; NEUTROPHILS # (AUTO) 7.2 10^3/uL (1.5-6.6); NEUTROPHILS % (AUTO) 63.7 %; PLT - PLATELET COUNT 227 10^3/uL (130-450); RED BLOOD COUNT 5.21 10^6/uL (4.20-5.40); RED CELL DISTRIBUTION WIDTH 12.6 % (12.0-15.0); WHITE BLOOD COUNT 11.2 x10^3/uL (4.8-10.8)
[2023-09-30] MEDS: IPRATROPIUM/ALBUTEROL 3 ML NEB INH STA (18:38)
[2023-09-30] MEDS: NITROGLYCERIN SL 0.4 MG TABLET SL STA (18:38)
[2023-09-30] MEDS: ASPIRIN CHEW 81 MG TABLET PO STA (18:38)
[2023-09-30 18:50] LABS: ALBUMIN 3.9 g/dL (3.2-5.5); ALBUMIN/GLOBULIN RATIO 1.5 (1.0-2.2); BILIRUBIN,TOTAL 0.4 mg/dL (0.2-1.0); CALCIUM 9.7 mg/dL (8.5-10.3); CREATININE 0.7 mg/dL (0.6-1.3); MAGNESIUM 1.7 mg/dL (1.7-2.3); POTASSIUM 4.3 mmol/L (3.5-4.5); TOTAL PROTEIN 6.5 g/dL (6.4-8.9)
[2023-09-30 18:57] LABS: TROPONIN I HIGH SENSITIVITY 37.6 ng/L (2.3-14.8)
--- NOTE | 2023-09-30 19:13 | XRAY Report ---
PROCEDURE: Chest 1V INDICATIONS: cp TECHNIQUE: One view of the chest was acquired. COMPARISON: 02/12/2020 FINDINGS: Surgical changes and devices: None. Lungs and pleura: No pleural effusions or pneumothorax. Lungs are clear. Mediastinum: Mediastinal contours appear normal. Heart size is normal. Bones and chest wall: No suspicious bony lesions. Overlying soft tissues appear unremarkable. IMPRESSION: No acute cardiopulmonary process. Reviewed by: Leslie Ireland MD on 09/30/2023 7:11 PM PDT Approved by: Leslie Ireland MD on 09/30/2023 7:11 PM PDT Station ID: [id number]
[2023-09-30] MEDS: iohexoL-300 100 ML VIAL IVP ONE (19:28)
--- NOTE | 2023-09-30 20:17 | CT Report ---
PROCEDURE: Angio Chest INDICATIONS: chest pain, pe protocol CONTRAST: Omni 300 80ml TECHNIQUE: After the administration of intravenous contrast, 2 mm axial images were acquired from the pulmonary apices to the posterior costophrenic angles during the arterial phase. In addition, 1 mm lung kernel and 5 mm soft tissue kernel reconstructions were performed. 3-dimensional coronal oblique maximum int ensity projection (MIP) reformats, 8 mm axial MIP, and 5 mm coronal and sagittal MPR reformats were t hen performed through the thorax. For radiation dose reduction, the following was used: automated exp osure control, adjustment of mA and/or kV according to patient size. COMPARISON: None. FINDINGS: Image quality: Decreased due to scan timing. Pulmonary arteries are not well opacified.. Large vessels: Pulmonary artery caliber is grossly normal and there are no central or lobar branch ar uziel pulmonary emboli. More peripheral emboli cannot be seen due to suboptimal arterial opacification . Thoracic aorta is normal caliber with moderate coronary artery calcification. No evidence of acute aortic pathology. Lungs and pleura: There is adherent mucus or polyp anteriorly in the trachea. Airways are otherwise d emonstrate mild bronchial wall thickening in the lower lungs. No acute consolidations or groundglass opacities. No pleural effusions or calcifications. Mediastinum: Normal size heart with mild to moderate coronary artery calcification and small pericard ial effusion, chronic. No bulky mediastinal or hilar adenopathy. No anterior or posterior mediastinal mass. Normal esophagus without hiatal hernia Chest wall and lower neck: The thyroid gland is enlarged on the right and heterogeneous. No other mariah st wall findings. No axillary or supraclavicular adenopathy by size. Bones: No aggressive osseous abnormality. Upper Abdomen: Unremarkable. IMPRESSION: No large central pulmonary embolus. Peripheral emboli would not be seen due to poor bolus. Mild lower lung bronchial wall thickening may indicate bronchitis. No other acute pulmonary parenchym al pathology. Enlarged, heterogeneous right thyroid lobe. Consider thyroid ultrasound as an outpatient for further evaluation. Reviewed by: Leslie Ireland MD on 09/30/2023 8:15 PM PDT Approved by: Leslie Ireland MD on 09/30/2023 8:15 PM PDT Station ID: [id number]
[2023-09-30] MEDS: METOPROLOL TARTRATE 50 MG TABLET PO STA (20:18)
[2023-09-30] MEDS: ATORVASTATIN 40 MG TABLET PO STA (20:18)
[2023-09-30] MEDS: OXYMETAZOLINE HCL 100 SPRAYS BOTTLE NAS STA (20:22)
[2023-09-30] MEDS ORDERED: ACETAMINOPHEN 500 MG TABLET PO PRN (20:28)
[2023-09-30] MEDS ORDERED: ONDANSETRON 4 MG/2 ML VIAL IVP PRN (20:28)
[2023-09-30] MEDS ORDERED: INSULIN GLARGINE-YFGN 300 UNIT/3 ML PEN SUBQ SCH (21:00)
[2023-09-30] MEDS: carvediloL 12.5 MG TABLET PO SCH (21:36)
[2023-09-30] MEDS: GABAPENTIN 300 MG CAPSULE PO SCH (21:37)
[2023-09-30] MEDS: MAGNESIUM SULFATE 2 GRAM 2 GM/50 ML BAG IV ONE (21:37)
[2023-09-30] MEDS: ATORVASTATIN 40 MG TABLET PO SCH ×2 (21:39→22:10)
[2023-09-30] MEDS ORDERED: HEPARIN 25000UNITS/500ML (D5W) 25,000 UNIT/500 ML BAG IV SCH (22:00)
[2023-09-30] MEDS: HEPARIN DRIP CARDIAC @ 12 UNITS/KG/HR IV SCH (22:12)
[2023-09-30] MEDS: methocarbamoL 500 MG TABLET PO STA (22:39)
[2023-09-30] MEDS: INSULIN GLARGINE-YFGN 300 UNIT/3 ML PEN SUBQ SCH (22:45)
[2023-09-30 23:09] VITALS: BP 125/72; O2SAT 95
[2023-10-01] MEDS ORDERED: PANTOPRAZOLE 40 MG TABLET PO SCH (07:00)
[2023-10-01] MEDS ORDERED: INSULIN LISPRO 300 UNIT/3 ML PEN SUBQ SCH (07:00)
[2023-10-01] MEDS ORDERED: ENOXAPARIN 40 MG/0.4 ML SYRINGE SUBQ SCH (09:00)
[2023-10-01] MEDS ORDERED: LOSARTAN 50 MG TABLET PO SCH (09:00)
[2023-10-01] MEDS ORDERED: ASPIRIN CHEW 81 MG TABLET PO SCH (09:00)
[2023-10-01] MEDS ORDERED: ATORVASTATIN 40 MG TABLET PO SCH (21:00)
== END 2023-09-30 23:06 | disposition short-term general hospital (02) ==
LOC: ED 18:02
DX: I25.110 Atherosclerotic heart disease of native coronary artery with unstable angina pectoris (principal); R93.89 Abnormal findings on diagnostic imaging of other specified body structures; J44.9 Chronic obstructive pulmonary disease, unspecified; I10 Essential (primary) hypertension; E11.42 Type 2 diabetes mellitus with diabetic polyneuropathy; M79.7 Fibromyalgia; Z79.4 Long term (current) use of insulin; Z79.82 Long term (current) use of aspirin; Z79.899 Other long term (current) drug therapy; F17.200 Nicotine dependence, unspecified, uncomplicated
CPT/HCPCS: 36415; 71045; 71275; 80053; 83735; 84484; 85025; 93005; 94640; 96374; 96375; 99285; 99291; A9270; J1815; Q9967